=== PATIENT | male | born 1985 | race Caucasian/White ===

== ENCOUNTER 2021-07-17 21:52 | Emergency (ER) | payer OTHER ==
--- NOTE | 2021-07-17 22:36 | ED ---
General Adult HPI - General Chief complaint: Extremity Injury, Upper Stated complaint: Fall downstairs R arm injury Time Seen by Provider: 07/17/21 22:25 Source: patient, RN notes reviewed, old records reviewed Mode of arrival: ambulatory Limitations: no limitations - History of Present Illness Initial comments: This is a well-appearing 35-year-old male that presents to the emergency room with complaints of right elbow pain. Patient states that he slipped down 2 steps and tried to catch himself twisting his right elbow and arm. He denies any shoulder pain. He denies any other injuries. -: hour(s) Location: right, upper extremity (elbow) Radiation: distal Severity scale (1-10): 3 Quality: sharp Improves with: immobilization Worsens with: movement Associated Symptoms: denies other symptoms - Related Data Allergies Allergy/AdvReac Type Severity Reaction Status Date / Time No Known Allergies Allergy Verified 07/17/21 22:19 Review of Systems ROS Statement: Those systems with pertinent positive or pertinent negative responses have been documented in the HPI. ROS Other: All systems not noted in ROS Statement are negative. Past Medical History Past Medical History: No Reported History History of Any Multi-Drug Resistant Organisms: None Reported Past Surgical History: No Surgical Hx Reported Past Psychological History: No Psychological Hx Reported Smoking Status: Current every day smoker Past Alcohol Use History: Occasional Past Drug Use History: None Reported General Exam Limitations: no limitations General appearance: alert, in no apparent distress Head exam: Present: atraumatic, normocephalic Eye exam: Present: normal appearance. Absent: scleral icterus, conjunctival injection Neck exam: Absent: tenderness, meningismus Respiratory exam: Present: normal lung sounds bilaterally. Absent: respiratory distress, accessory muscle use Cardiovascular Exam: Present: tachycardia Extremities exam: Present: normal capillary refill Right Shoulder Exam: Present: full ROM. Absent: tenderness Upper Arm exam: Present: full ROM. Absent: tenderness Elbow exam: Present: tenderness, swelling, tenderness over radial head. Absent: laceration, ecchymosis, deformity, crepitus, dislocation, erythema Forearm Wrist exam: Present: full ROM. Absent: tenderness Hand Wrist exam: Present: tenderness (fifth metacarpal old boxer fracture) Neuro motor exam: Present: wrist extension intact, thumb opposition intact, thumb IP flexion intact, thumb adduction intact, fingers 2-5 abduction intact Neurosensory exam: Present: radial nerve intact, ulnar nerve intact, median nerve intact Vascular: Present: normal capillary refill, radial pulse. Absent: vascular compromise Back exam: Present: normal inspection, full ROM. Absent: tenderness, CVA tenderness (R), CVA tenderness (L), rash noted Neurological exam: Present: alert, oriented X3 Psychiatric exam: Present: normal affect, normal mood Skin exam: Present: warm, dry, normal color. Absent: cyanosis, diaphoretic, petechiae, pallor Course Vital Signs 07/17/21 22:15 Temperature 97.5 F L Pulse Rate 115 H Respiratory 20 Rate Blood Pressure 127/78 O2 Sat by Pulse 95 Oximetry Medical Decision Making - Medical Decision Making Patient was offered Tylenol or Motrin and declined. X-ray shows no joint effusion, no evidence of fracture or dislocation. Patient is neurovascularly intact. Patient was directed to rest, ice and take Motrin for pain. I advised him if the pain continues after 3 days to follow-up with his primary care doctor for reevaluation. Patient is agreeable to this plan of care. Case was discussed with Dr. Hernandez Disposition Clinical Impression: Elbow injury Disposition: HOME SELF-CARE Condition: Good Instructions (If sedation given, give patient instructions): Elbow Sprain (ED) Additional Instructions: Rest, ice and elevate right arm. You can take Tylenol and or Motrin for pain. If pain persists after 3 days please follow-up with your primary care doctor for reevaluation. Is patient prescribed a controlled substance at d/c from ED?: No Referrals: None,Stated [Primary Care Provider] - 1-2 days Time of Disposition: 23:08
--- NOTE | 2021-07-17 23:00 | XR ---
EXAMINATION TYPE: XR elbow complete RT DATE OF EXAM: 07/17/2021 COMPARISON: NONE HISTORY: Elbow pain TECHNIQUE: 4 views FINDINGS: I see no fracture nor dislocation. Joint spaces are normal. No sign of elbow joint effusion . IMPRESSION: Negative right elbow exam. No fracture.
[2021-07-17] MEDS ORDERED: IBUPROFEN 800 MG TAB PO STA (23:18)
[2021-07-17 23:26] VITALS: BP 113/77; PULSE 104; RESP 18; TEMP 97.7
== END 2021-07-17 23:26 | disposition home or self-care (01) ==
LOC: EC 21:52
DX: S59.901A Unspecified injury of right elbow, initial encounter (principal); F17.200 Nicotine dependence, unspecified, uncomplicated; W10.9XXA Fall (on) (from) unspecified stairs and steps, initial encounter
CPT/HCPCS: 99283

== ENCOUNTER 2022-08-19 14:56 | Emergency (ER) | payer OTHER ==
[2022-08-19 15:01] VITALS: RESP 18; TEMP 98.2
[2022-08-19] MEDS ORDERED: LIDOCAINE 1% INJ 10MG/ML (30 ML VIAL-PF) SQ ONE (15:04)
[2022-08-19] MEDS ORDERED: BACITRACIN OINT 1 EACH PACKET TOPICAL ONE (15:08)
--- NOTE | 2022-08-19 15:15 | ED ---
Wound/Laceration HPI - General Chief Complaint: Wound/Laceration Stated Complaint: L wrist laceration Time Seen by Provider: 08/19/22 15:03 Source: patient, RN notes reviewed, old records reviewed Mode of arrival: ambulatory Limitations: no limitations - History of Present Illness Initial Comments: This is a well-appearing 36-year-old male who presents to the emergency room with laceration to his wrist approximately an hour ago on a broken window. States tetanus shot is up-to-date. Full range of motion. Denies any other injuries. -: hour(s) (1) Location: other (left wrist) Extremity Location: Left: Wrist (4mm abrasion anterior wrist, 3mm abrasions volar wrist both superficial) Patient Tetanus UTD: Yes Context: accidental, other (broken window) Treatments Prior to Arrival: bandage - Related Data Allergies Allergy/AdvReac Type Severity Reaction Status Date / Time No Known Allergies Allergy Verified 08/19/22 15:01 Review of Systems ROS Statement: Those systems with pertinent positive or pertinent negative responses have been documented in the HPI. ROS Other: All systems not noted in ROS Statement are negative. Past Medical History Past Medical History: No Reported History History of Any Multi-Drug Resistant Organisms: None Reported Past Surgical History: No Surgical Hx Reported Past Psychological History: No Psychological Hx Reported Smoking Status: Current every day smoker Past Alcohol Use History: Occasional Past Drug Use History: None Reported General Exam Limitations: no limitations General appearance: alert, in no apparent distress Head exam: Present: atraumatic Eye exam: Present: normal appearance. Absent: scleral icterus, conjunctival injection, periorbital swelling Neck exam: Present: full ROM. Absent: tenderness, meningismus Respiratory exam: Absent: respiratory distress, accessory muscle use Cardiovascular Exam: Present: tachycardia Left Forearm Wrist exam: Present: full ROM, abrasion. Absent: tenderness, swelling, laceration, ecchymosis, deformity, crepitus, dislocation, erythema, tenderness over anatomical snuff box Hand Wrist exam: Present: full ROM. Absent: tenderness Neuro motor exam: Present: wrist extension intact, thumb opposition intact Neurosensory exam: Present: 2-point discrimination, radial nerve intact, ulnar nerve intact, median nerve intact Vascular: Present: normal capillary refill, radial pulse. Absent: vascular compromise Neurological exam: Present: alert, oriented X3, normal gait Psychiatric exam: Present: normal affect, normal mood Skin exam: Present: warm, dry, normal color. Absent: cyanosis, diaphoretic, petechiae, pallor Course Vital Signs 08/19/22 08/19/22 14:59 15:15 Temperature 98.2 F Pulse Rate 115 H 80 Respiratory 18 18 Rate Blood Pressure 148/91 118/66 O2 Sat by Pulse 95 99 Oximetry Medical Decision Making - Medical Decision Making Was pt. sent in by a medical professional or institution (, [facility], PROTOTYPE MODEL MAKER, urgent care, hospital, or intermediate...) When possible be specific @ -[No] Did you speak to anyone other than the patient for history (EMS, parent, family, police, friend...)? What history was obtained from this source @ -[No] Did you review nursing and triage notes (agree or disagree)? Why? @ -[I reviewed and agree with nursing and triage notes] Were old charts reviewed (outside hosp., previous admission, EMS record, old EKG, old radiological studies, urgent care reports/EKG's, intermediate records)? Report findings @ -[No old charts were reviewed] Differential Diagnosis (chest pain, altered mental status, abdominal pain women, abdominal pain men, vaginal bleeding, weakness, fever, dyspnea, syncope, headache, dizziness, GI bleed, back pain, seizure, CVA, palpatations, mental health, musculoskeletal)? @ -abrasion, laceration, foreign body EKG interpreted by me (3pts min.). @ -n/a X-rays interpreted by me (1pt min.). @ -[None done] CT interpreted by me (1pt min.). @ -[None done] U/S interpreted by me (1pt. min.). @ -[None done] What testing was considered but not performed or refused? (CT, X-rays, U/S, labs)? Why? @ xr considered to r/o foreign body however very superficial wounds , non- tender What meds were considered but not given or refused? Why? @ -tetanus offered and declined, states thinks up to date Did you discuss the management of the patient with other professionals (professionals i.e. [facility]ADOR[facility] Prather, PROTOTYPE MODEL MAKER, lab, RT, psych nurse, social media assistant, farm marketer, teacher, community resource officer, family service caseworker)? Give summary @ -[No] Was smoking cessation discussed for >3mins.? @ -[No] Was critical care preformed (if so, how long)? @ -[No] Were there social determinants of health that impacted care today? How? ([place] elessness, low income, unemployed, alcoholism, drug addiction, transportation, low edu. Level, literacy, decrease access to med. care, senior care, rehab)? @ -[No] Was there de-escalation of care discussed even if they declined (Discuss DNR or withdrawal of care, Hospice)? DNR status @ -[No] What co-morbidities impacted this encounter? (DM, HTN, Smoking, COPD, CAD, Cancer, CVA, ARF, Chemo, Hep., AIDS, mental health diagnosis, sleep apnea, morbid obesity)? @ -Abrasion, laceration Was patient admitted / discharged? Hospital course, mention meds given and route, prescriptions, significant lab abnormalities, going to OR and other pertinent info. @ -discharged This is a well-appearing 36-year-old male who presents to the emergency room with laceration to his wrist approximately an hour ago on a broken window. States tetanus shot is up-to-date. Full range of motion. Denies any other injuries. Wounds were irrigated copiously with saline. He does have full range of motion. Wounds are very superficial. Bacitracin dressing was applied. Directed to follow up with his primary care doctor as needed. Return with any new or concerning symptoms. Case discussed with Dr. Jefferson Undiagnosed new problem with uncertain prognosis? @ -[No] Drug Therapy requiring intensive monitoring for toxicity (Heparin, Nitro, Insulin, Cardizem)? @ -[No] Were any procedures done? @ -[No] Diagnosis/symptom? @ abrasions Acute, or Chronic, or Acute on Chronic? @ -acute Uncomplicated (without systemic symptoms) or Complicated (systemic symptoms)? @ -uncomplicated Side effects of treatment? @ -no Exacerbation, Progression, or Severe Exacerbation? @ -[No] Poses a threat to life or bodily function? How? (Chest pain, [place], [place], pneumonia, PE, COPD, DKA, ARF, appy, cholecystitis, CVA, Diverticulitis, Homicidal, Suicidal, threat to staff... and all critical care pts) @ -[No] Disposition Clinical Impression: Multiple abrasions Disposition: HOME SELF-CARE Condition: Good Instructions (If sedation given, give patient instructions): Abrasion (ED) Additional Instructions: Bacitracin dressing once a day for the next 3 days. Follow-up with your primary care doctor as needed. Return to the emergency room with eating or concerned symptoms. Is patient prescribed a controlled substance at d/c from ED?: No Referrals: Levon Alcala MD [Primary Care Provider] - 1-2 days Time of Disposition: 15:15
[2022-08-19 15:34] VITALS: BP 134/78; PULSE 84
== END 2022-08-19 15:34 | disposition home or self-care (01) ==
LOC: EC 14:56
DX: S61.512A Laceration without foreign body of left wrist, initial encounter (principal); F17.200 Nicotine dependence, unspecified, uncomplicated; W25.XXXA Contact with sharp glass, initial encounter
CPT/HCPCS: 99282

== ENCOUNTER 2022-09-08 13:21 | Emergency (ER) | payer OTHER ==
[2022-09-08 14:27] VITALS: RESP 18; TEMP 98
--- NOTE | 2022-09-08 16:35 | ED ---
Psych HPI - General Chief Complaint: Psychiatric Symptoms Stated Complaint: Mental Health Time Seen by Provider: 09/08/22 15:43 Source: patient, RN notes reviewed Mode of arrival: ambulatory - History of Present Illness Initial Comments: Patient is a pleasant 37-year-old male presenting to the emergency with concerns of high levels of stress and low mood. He does report working excessively and feeling as though he is on "autopilot." He states that yesterday he opted not to go to work and drink heavily throughout the evening last night and this morning. He reports that he was concerned that he was having a "mental breakdown" so he presented here to the emergency room. He reports that he has not formally ever been diagnosed with anxiety or depression but feels that he does have these underlying conditions. He denies any suicidal ideation, homicidal ideation, hallucinations or delusions. He does admit to drinking regularly and/ or daily. He has a past medical history significant for ADHD but denies any other medical or mental health history. - Related Data Home Medications Medication Instructions Recorded Confirmed No Known Home Medications 09/08/22 09/08/22 Allergies Allergy/AdvReac Type Severity Reaction Status Date / Time No Known Allergies Allergy Verified 09/08/22 16:43 Review of Systems ROS Statement: Those systems with pertinent positive or pertinent negative responses have been documented in the HPI. ROS Other: All systems not noted in ROS Statement are negative. Past Medical History Past Medical History: No Reported History History of Any Multi-Drug Resistant Organisms: None Reported Past Surgical History: No Surgical Hx Reported Past Psychological History: ADD/ADHD Smoking Status: Current every day smoker Past Alcohol Use History: Daily, Heavy Past Drug Use History: None Reported General Exam General appearance: alert, in no apparent distress Head exam: Present: atraumatic, normocephalic, normal inspection Eye exam: Present: normal appearance, PERRL, EOMI. Absent: scleral icterus, conjunctival injection, periorbital swelling ENT exam: Present: normal exam, mucous membranes moist Neck exam: Present: normal inspection, full ROM Respiratory exam: Absent: respiratory distress, accessory muscle use Cardiovascular Exam: Present: regular rate GI/Abdominal exam: Present: soft. Absent: distended, tenderness, guarding, rebound, rigid Extremities exam: Present: normal inspection, full ROM. Absent: pedal edema, joint swelling Back exam: Present: normal inspection, full ROM Neurological exam: Present: alert, oriented X3, CN II-XII intact Psychiatric exam: Present: flat affect. Absent: homicidal ideation, suicidal ideation Skin exam: Present: warm, dry, intact, normal color. Absent: rash Course Vital Signs 09/08/22 09/08/22 14:22 21:43 Temperature 98.0 F Pulse Rate 109 H 87 Respiratory 18 18 Rate Blood Pressure 126/70 124/84 O2 Sat by Pulse 96 98 Oximetry Medical Decision Making - Medical Decision Making Was pt. sent in by a medical professional or institution (, PA, ACADEMIC ASSOCIATE, urgent care, hospital, or care home...) When possible be specific @ -No Did you speak to anyone other than the patient for history (EMS, parent, family, police, friend...)? What history was obtained from this source @ -No Did you review nursing and triage notes (agree or disagree)? Why? @ -I reviewed and agree with nursing and triage notes Were old charts reviewed (outside hosp., previous admission, EMS record, old EKG, old radiological studies, urgent care reports/EKG's, care home records)? Report findings @ -No old charts were reviewed Differential Diagnosis (chest pain, altered mental status, abdominal pain women, abdominal pain men, vaginal bleeding, weakness, fever, dyspnea, syncope, headache, dizziness, GI bleed, back pain, seizure, CVA, palpatations, mental health, musculoskeletal)? @ -Differential Mental Health Depression, anxiety, bipolar, psychosis, schizophrenia, borderline personality, situational depression, adjustment disorder, behavioral disorder, brain tumor, malingering, substance abuse, encephalopathy, medication reaction, dementia, hypothyroidism, degenerative neurologic disorder, lupus.... This is not meant to be all-inclusive list EKG interpreted by me (3pts min.). @ -None done X-rays interpreted by me (1pt min.). @ -None done CT interpreted by me (1pt min.). @ -None done U/S interpreted by me (1pt. min.). @ -None done What testing was considered but not performed or refused? (CT, X-rays, U/S, labs)? Why? @ -None What meds were considered but not given or refused? Why? @ -None Did you discuss the management of the patient with other professionals (professionals i.e. , PA, ACADEMIC ASSOCIATE, lab, RT, psych nurse, social media manager, enterostomal nurse, teacher, special officer, protective services case worker)? Give summary @ -No Was smoking cessation discussed for >3mins.? @ -No Was critical care preformed (if so, how long)? @ -No Were there social determinants of health that impacted care today? How? (Homelessness, low income, unemployed, alcoholism, drug addiction, transportation, low edu. Level, literacy, decrease access to med. care, [facility], rehab)? @ -No Was there de-escalation of care discussed even if they declined (Discuss DNR or withdrawal of care, Hospice)? DNR status @ -No What co-morbidities impacted this encounter? (DM, HTN, Smoking, COPD, CAD, Cancer, CVA, ARF, Chemo, Hep., AIDS, mental health diagnosis, sleep apnea, morbid obesity)? @ -Alcohol abuse Was patient admitted / discharged? Hospital course, mention meds given and route, prescriptions, significant lab abnormalities, going to OR and other pertinent info. @ -Patient is pleasant 37-year-old male presenting to the emergency room for further evaluation with concerns of high stress levels, low mood and "mental breakdown." He denies any suicidal thoughts, hallucinations, delusions or homicidal thoughts. He reports that he is concerned that she is currently on autopilot and will no longer be able to function due to poor mental health. He denies any formal diagnosis of anxiety or depression is not currently taking any medications to treat these conditions. He does admit to regular alcohol intake. Psychiatric intake which include placing patient into a green psychiatric, removal of personal belongings and breath alcohol testing did reveal a breath alcohol level elevated at 0.158. Patient to be sober for evaluation by EPS at 8 PM. No indication for further workup from a medical standpoint and patient is medically cleared once sober to be evaluated by EPS. EPS evaluation completed. Patient was cleared for discharge home with safety plan in place and outpatient resources including referral to [facility]. Patient encouraged to follow-up with community mental health and possible rehab for alcohol abuse. Questions and concerns answered. Return parameters to the emergency room discussed. We'll discharge home in stable condition sober for outpatient follow-up with community mental health services for depression with anxiety. Undiagnosed new problem with uncertain prognosis? @ -No Drug Therapy requiring intensive monitoring for toxicity (Heparin, Nitro, Insulin, Cardizem)? @ -No Were any procedures done? @ -No Diagnosis/symptom? @ -Depression with anxiety Acute, or Chronic, or Acute on Chronic? @ -Acute Uncomplicated (without systemic symptoms) or Complicated (systemic symptoms)? @ -Uncomplicated Side effects of treatment? @ -No Exacerbation, Progression, or Severe Exacerbation? @ -No Poses a threat to life or bodily function? How? (Chest pain, [place], [place], pneumonia, PE, COPD, DKA, ARF, appy, cholecystitis, CVA, Diverticulitis, Homicidal, Suicidal, threat to staff... and all critical care pts) @ -No Diagnosis/symptom? @ -Alcohol abuse Acute, or Chronic, or Acute on Chronic? @ -Acute on chronic Uncomplicated (without systemic symptoms) or Complicated (systemic symptoms)? @ -Uncomplicated Side effects of treatment? @ -none Exacerbation, Progression, or Severe Exacerbation] @ -no Poses a threat to life or bodily function? @ -no Case discussed with Dr. Jefferson Disposition Clinical Impression: Depression with anxiety Disposition: HOME SELF-CARE Condition: Stable Instructions (If sedation given, give patient instructions): Depression (ED), Anxiety (ED) Additional Instructions: Please follow safety plan as outlined by psychiatric nurse. Please establish with and follow with outpatient psychiatric services. Abstaining from alcohol usage is recommended. Please return to the Emergency Department if symptoms worsen or any other concerns. Is patient prescribed a controlled substance at d/c from ED?: No Referrals: Levon Alcala MD [Primary Care Provider] - 1-2 days Time of Disposition: 21:45
[2022-09-08 21:45] VITALS: BP 124/84; PULSE 87
== END 2022-09-08 21:47 | disposition home or self-care (01) ==
LOC: EC 13:21
DX: F41.8 Other specified anxiety disorders (principal); F17.200 Nicotine dependence, unspecified, uncomplicated
CPT/HCPCS: 82075; 99284